=== PATIENT | female | born 1965 | race Two or more races ===

== ENCOUNTER 2017-10-20 17:44 | Emergency (ER) | payer SELFPAY ==
[~2017-10-20] VITALS: Ht 157.5 cm; Wt 86.2 kg
[2017-10-20 18:20] VITALS: BP 140/79
[2017-10-20] MEDS ORDERED: OFLO5DRO7 EACH EAR (18:28)
[2017-10-20] MEDS ORDERED: TRAM50TA PO (18:28)
--- NOTE | 2017-10-20 18:28 | PHYS DOC ---
Adult General Chief Complaint Chief Complaint: EARACHE/EAR PAIN HPI HPI Patient is a 52 year old [place]-speaking female who presents today complaining of 5 out of 10 right ear pain that has been going on intermittently for 1 month. She states she took penicillin with no improvement. She states the ear drains yellow discharge. She states she had a subjective fever yesterday. Interpretation was provided by the son for [place]. Review of Systems Review of Systems Constitutional: Reports subjective fever Eyes: Denies change in visual acuity, redness, or eye pain [] HENT: Reports right ear pain with drainage. Denies nasal congestion or sore throat [] Respiratory: Denies cough or shortness of breath [] Cardiovascular: No additional information not addressed in HPI [] GI: Denies abdominal pain, nausea, vomiting, bloody stools or diarrhea [] : Denies dysuria or hematuria [] Musculoskeletal: Denies back pain or joint pain [] Integument: Denies rash or skin lesions [] Neurologic: Denies headache, focal weakness or sensory changes [] All other systems were reviewed and found to be within normal limits, except as documented in this note. Physical Exam Physical Exam Constitutional: Well developed, well nourished, no acute distress, non-toxic appearance. [] HENT: Normocephalic, atraumatic, bilateral external ears normal, oropharynx moist, no oral exudates, nose normal. [] Right ear canal is narrowed, erythematous, yellow exudate noted, tragus is painful. TM is normal Eyes: PERRLA, EOMI, conjunctiva normal, no discharge. [] Neck: Normal range of motion, no tenderness, supple, no stridor. [] Cardiovascular:Heart rate regular rhythm, no murmur [] Lungs & Thorax: Bilateral breath sounds clear to auscultation [] Abdomen: Bowel sounds normal, soft, no tenderness, no masses, no pulsatile masses. [] Skin: Warm, dry, no erythema, no rash. [] Back: No tenderness, no CVA tenderness. [] Extremities: No tenderness, no cyanosis, no clubbing, ROM intact, no edema. [] Neurologic: Alert and oriented X 3, normal motor function, normal sensory function, no focal deficits noted. [] Psychologic: Affect normal, judgement normal, mood normal. [] EKG EKG [] Radiology/Procedures Radiology/Procedures [] Course & Med Decision Making Course & Med Decision Making Pertinent Labs and Imaging studies reviewed. (See chart for details) Patient has right otitis externa, and will be discharged with a fall accident. Follow-up with PCP in 1-2 weeks or ENT. [facility] Disclaimer Dragon Disclaimer This electronic medical record was generated, in whole or in part, using a voice recognition dictation system. Departure Departure Impression: Primary Impression: Right otitis externa Additional Impression: Fever Disposition: 01 HOME, SELF-CARE Condition: STABLE Referrals: NO PCP (PCP) BRIAN ANDRADE MD follow up in one week Patient Instructions: Fever, Adult, Otitis Media, Adult Additional Instructions: You were seen for right external ear infection. Use the eardrops prescribed as ordered. Take the pain medicine as needed for pain. Follow-up with your own doctor the provided doctor in 1-2 weeks as needed. Scripts Ofloxacin (OFLOXACIN) 5 Ml Drops 5 DROP EACH EAR BID, #10 ML Prov: AIDEN GUADALUPE APRN 10/20/17 Tramadol Hcl (TRAMADOL HCL) 50 Mg Tablet 50 MG PO Q6HRS PRN for PAIN, #30 TAB Prov: AIDEN GUADALUPE APRN 10/20/17 Problem Qualifiers Primary Impression: Right otitis externa Otitis externa type: other infective Chronicity: acute Qualified Codes: H60.391 - Other infective otitis externa, right ear Additional Impression: Fever Fever type: unspecified Qualified Codes: R50.9 - Fever, unspecified AIDEN GUADALUPE APRN Oct 20, 2017 18:28
== END 2017-10-20 18:37 | disposition home or self-care (01) ==
LOC: ER 17:44
DX: H60.391 Other infective otitis externa, right ear (principal)
CPT/HCPCS: 99283